=== PATIENT | female | born 1960 | race Caucasian/White ===

== ENCOUNTER 2020-01-27 07:29 | Outpatient (CLI) | payer BC, SELFPAY ==
--- NOTE | ~2020-01-27 | MM_ITS ---
EXAMINATION: MM screening [facility] BI w nadiya HISTORY: Screening mammogram TECHNIQUE: Craniocaudal and mediolateral oblique 3-D tomosynthesis images were obtained and synthetic 2-D images were generated. CAD analysis was submitted and interpreted. COMPARISON: 08/02/2018, 10/09/2008, 09/03/2008 BREAST PARENCHYMAL COMPOSITION: There are scattered areas of fibroglandular density. FINDINGS: There is a stable low density mass in the posterior third of the lower left breast. There i s no evidence of suspicious mass, calcification, or architectural distortion to suggest malignancy in either breast. There has been no suspicious interval change. IMPRESSION: 1. No mammographic evidence of malignancy. 2. Recommend routine screening mammography in one year. BI-RADS Category 2: Benign finding(s). Reviewed, dictated and finalized at location A.
== END 2020-01-27 07:30 | disposition home or self-care (01) ==
LOC: ANHIMG 07:34
PROVIDERS: PCP Nurse Practitioner; Visit Provider Nurse Practitioner
DX: Z12.31 Encounter for screening mammogram for malignant neoplasm of breast (principal)
CPT/HCPCS: 77063; 77067

== ENCOUNTER 2021-01-27 08:56 | Outpatient (CLI) | payer BC, SELFPAY ==
--- NOTE | ~2021-01-27 | MM_ITS ---
EXAMINATION: MM screening [facility] BI w nadiya HISTORY: Screening mammogram TECHNIQUE: Craniocaudal and mediolateral oblique 3-D tomosynthesis images were obtained and synthetic 2-D images were generated. CAD analysis was submitted and interpreted. COMPARISON: 01/27/2020, 08/02/2018, 10/09/2008 BREAST PARENCHYMAL COMPOSITION: There are scattered areas of fibroglandular density. FINDINGS: RIGHT BREAST: There is a possible mass in the middle third of the slightly lower, slightly outer al[address] st 7.5 cm from the nipple. LEFT BREAST: There is no evidence of suspicious mass, calcification, or architectural distortion to s uggest malignancy. There has been no significant interval change. IMPRESSION: 1. Possible right breast mass. 2. Additional mammographic views and possible breast ultrasound are recommended. BI-RADS Category 0: Incomplete: Needs additional imaging evaluation. Reviewed, dictated and finalized at location A. IMPRESSION: 1. Possible right breast mass. 2. Additional mammographic views and possible breast ultrasound are recommended . BI-RADS Category 0: Incomplete: Needs additional imaging evaluation.
== END 2021-01-27 08:57 | disposition home or self-care (01) ==
LOC: ANHIMG 09:00
PROVIDERS: PCP Nurse Practitioner; Visit Provider Nurse Practitioner
DX: Z12.31 Encounter for screening mammogram for malignant neoplasm of breast (principal); R92.8 Other abnormal and inconclusive findings on diagnostic imaging of breast
CPT/HCPCS: 77063; 77067

== ENCOUNTER 2021-02-23 13:48 | Outpatient (CLI) | payer BC, SELFPAY ==
--- NOTE | ~2021-02-23 | MMUS_ITS ---
EXAMINATION: MM diagnostic [place] RT w nadiya, US breast RT complete HISTORY: Follow-up right breast asymmetry TECHNIQUE: Additional 3-D tomosynthesis images of the right breast were performed and synthetic 2-D i mages were generated. CAD analysis was submitted and interpreted. High resolution complete right alcon st ultrasound was performed. COMPARISON: 01/27/2021 BREAST PARENCHYMAL COMPOSITION: Breast composed of scattered areas of fibroglandular density FINDINGS: MAMMOGRAPHIC FINDINGS: There is a 5 mm circumscribed radiolucent central aspect of the right breast on CC view. This is not identified on the lateral or MLO views. ULTRASOUND: Complete right breast ultrasound: At 12:00, 2 cm from the nipple, there is a 6 mm simple cyst likely corresponding to the mammographic finding. No suspicious masses to suggest malignancy. IMPRESSION: 1. No evidence for malignancy in the right breast. 2. Routine yearly screening mammogram and regular clinical breast examination are recommended. BI-RADS Category 2: Benign finding(s). Reviewed, dictated and finalized at location A. IMPRESSION: 1. No evidence for malignancy in the right breast. 2. Routine yearly screening mammogram and regular clinical breast examination a re recommended. BI-RADS Category 2: Benign finding(s).
== END 2021-02-23 13:49 | disposition home or self-care (01) ==
LOC: ANHIMG 13:50
PROVIDERS: PCP Internal Medicine; Visit Provider Nurse Practitioner
DX: R92.8 Other abnormal and inconclusive findings on diagnostic imaging of breast (principal)
CPT/HCPCS: 76641; 77061; 77065; G0279

== ENCOUNTER → 2023-02-03 08:10 | Outpatient (CLI) | payer OTHER, SELFPAY ==
--- NOTE | ~2023-02-03 | XR_ITS ---
Clinical Indication: Cough PA and lateral views of the chest: Comparison: None Findings: The lungs are clear, without evidence of focal consolidation or pleural effusion. Cardiome diastinal silhouette is within normal limits. Bones and soft tissues are unremarkable. Impression: Normal chest. Reviewed, dictated and finalized at location . Impression: Normal chest.
== END ==
PROVIDERS: PCP Nurse Practitioner; Visit Provider Nurse Practitioner
DX: R05.9 Cough, unspecified (principal)
CPT/HCPCS: 71046

== ENCOUNTER 2023-12-22 07:02 | Emergency (ER) | payer OTHER, SELFPAY ==
--- NOTE | ~2023-12-22 | XR_ITS ---
Clinical Indication: Left anterior rib pain PA and lateral views of the chest: Comparison: 02/03/2023 Findings: The lungs are clear, without evidence of focal consolidation or pleural effusion. Possible COPD. Cardiomediastinal silhouette is within normal limits. Bones and soft tissues are unremarkable. Impression: Clear lungs. Possible COPD. No fracture evident on this exam. Reviewed, dictated and finalized at location . Impression: Clear lungs. Possible COPD. No fracture evident on this exam.
[2023-12-22 07:11] VITALS: BP 130/66; PULSE 85; RESP 18; TEMP 36.8; O2SAT 97
--- NOTE | 2023-12-22 07:25 | ED.GENADULT ---
HPI - General Adult General Chief complaint: Unspecified Stated complaint: rib pain Time Seen by Provider: 12/22/23 07:08 History of Present Illness HPI narrative: This is a 62-year-old female presenting with anterior rib pain. patient had a chiropractic manipulation 1 week ago because she was having neck spasms. During that time she was laying on her stomach her chiropractor pushed on her back pop in her back but then also causing her some anterior rib pain. Since then she has taking intermittent Motrin. However the pain is still there with movement and palpation. Patient saw her primary care physician who prescribed her NSAIDs and muscle relaxers however the patient has not taken a muscle relaxer she had. Patient denies fevers chills productive cough chest pain abdominal pain or back pain neurologic deficits. Related Data Allergies Allergy/AdvReac Type Severity Reaction Status Date / Time metronidazole Allergy Unknown Hives Verified 12/22/23 07:25 [facility] Past Medical History Medical History Clostridial gastroenteritis Social History Social History Smoking packs per day: 0.5 Smoking cigarettes per day: 10.0 Smoking status: Current every day smoker Tobacco type: cigarettes Alcohol intake: current Drinks per week: 4 Alcohol use details: social Substance use: never Substance use type: does not use Exam Narrative: APPEARANCE: No apparent distress. Head: atraumatic. EYES: EOMI, NOSE: Atraumatic NECK: Trachea midline RESPIRATORY: No increased rate of breathing CTAB CARDIOVASCULAR: RRR, ABDOMINAL: Non-distended MUSCULOSKELETAl: Tenderness to palpation over the parasternal area on ribs 6 and 7 bilaterally. No overlying skin changes. AP or lateral loading of the ribcage. NEURO: Alert. Moving 4/4 extremities SKIN:: Warm, dry. Normal color PSYCHIATRIC: Normal affect Course Vital Signs Vital signs: Vital Signs Temperature 98.2 F 12/22/23 07:11 Pulse Rate 85 12/22/23 07:11 Respiratory Rate 18 12/22/23 07:11 Blood Pressure 130/66 12/22/23 07:11 Pulse Oximetry 97 12/22/23 07:11 Oxygen Delivery Room Air 12/22/23 07:11 Temperature 98.2 F 12/22/23 07:11 Pulse Rate 85 12/22/23 07:11 Respiratory Rate 18 12/22/23 07:11 Blood Pressure 130/66 12/22/23 07:11 Pulse Oximetry 97 12/22/23 07:11 Oxygen Delivery Room Air 12/22/23 07:11 Medical Decision Making MDM Narrative Medical decision making narrative: -Course: 62-year-old female presenting with bilateral anterior rib cage after chiropractic manipulation. Physical exam is shows point tenderness the parasternal area at rib 6 7 bilaterally. Vital signs/ stable lungs are clear. Chest x-ray negative obvious rib fractures or pneumothorax. Patient's pain was treated she is given incentive spirometer. Discharged w/ primary care follow-up and return precautions. 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[employer], denies drugs or alcohol -Interventions: Toradol, Tylenol lidocaine patch methocarbamol -Shared decision making / Disposition: discharge -RX Motrin Tylenol lidocaine Robaxin Vital Signs Vital Signs: Vital Signs Temperature 98.2 F 12/22/23 07:11 Pulse Rate 85 12/22/23 07:11 Respiratory Rate 18 12/22/23 07:11 Blood Pressure 130/66 12/22/23 07:11 Pulse Oximetry 97 12/22/23 07:11 Oxygen Delivery Room Air 12/22/23 07:11 Temperature 98.2 F 12/22/23 07:11 Pulse Rate 85 12/22/23 07:11 Respiratory Rate 18 12/22/23 07:11 Blood Pressure 130/66 12/22/23 07:11 Pulse Oximetry 97 12/22/23 07:11 Oxygen Delivery Room Air 12/22/23 07:11 Discharge Plan Discharge Clinical Impression: Rib pain Patient Disposition: Home, Se
[2023-12-22] MEDS: LIDOCAINE 5% PATCH 1 PATCH TRANSDERM (07:32)
[2023-12-22] MEDS: methocarbamoL 750 MG TABLET 1500 MG PO (07:32)
[2023-12-22] MEDS: ACETAMINOPHEN 500 MG TABLET 1000 MG PO (07:33)
[2023-12-22] MEDS: KETOROLAC 30 MG/ML VIAL (*BKC) IM (07:35)
[2023-12-22 08:25] VITALS: BP 128/73; PULSE 66; RESP 17; O2SAT 100
[2023-12-22 08:26] VITALS: BP 128/73; PULSE 66; RESP 15; O2SAT 100
== END 2023-12-22 08:28 | disposition home or self-care (01) ==
PROVIDERS: Emergency Provider Emergency Medicine; PCP Nurse Practitioner
DX: R07.81 Pleurodynia (principal); F17.210 Nicotine dependence, cigarettes, uncomplicated; Z79.51 Long term (current) use of inhaled steroids
CPT/HCPCS: 71046; 96372; 99283; A9270; J1885

== ENCOUNTER 2024-10-02 12:11 | Emergency (ER) | payer OTHER, SELFPAY ==
--- NOTE | ~2024-10-02 | XR_ITS ---
3 VIEWS LUMBAR SPINE Ordering provider: Cristin Donohue NP History: . low back pain for 1 wk after coughing hx herniated disc . Comparison: None. FINDINGS: VERTEBRAL BODIES:Compression fracture involving the superior endplate of L1 is noted which may be acu te or chronic. MRI evaluation advised. No visible fracture or subluxation. Mild levoscoliosis. DISK SPACES: Narrowing of the disc L4-L5 and L5-S1. Facet joint disease at the level of L4-L5 and L5- S1. SOFT TISSUES: Normal. IMPRESSION: Compression fracture of L1 which may be acute or chronic. MRI evaluation is advised. Multilevel degenerative disc disease. Reviewed, dictated and finalized at location A. IMPRESSION: Compression fracture of L1 which may be acute or chronic. MRI evaluation is adv ised. Multilevel degenerative disc disease.
[2024-10-02 12:23] VITALS: BP 124/64; PULSE 70; RESP 18; TEMP 36.1; O2SAT 99
--- NOTE | 2024-10-02 12:31 | ED_ITS ---
HPI - Back Pain/Injury General Chief Complaint: Back Pain/Injury Stated Complaint: back injury Time Seen by Provider: 10/02/24 12:32 Source: patient Mode of arrival: ambulatory Limitations: no limitations History of Present Illness HPI Narrative: 63-year-old female presents with complaint low back pain for 1 week. Patient states she was coughing and was trying to hold in a when she was in a crowd people and had excruciating pain to back since then. Patient reports history bulging disc. Patient requesting x-ray to rule out back injury. Ambulatory with steady gait. No radiation of pain. No loss of bowel or bladder. No weakness or numbness to lower extremities. All systems reviewed and negative except as noted above. Related Data Allergies Allergy/AdvReac Type Severity Reaction Status Date / Time metronidazole Allergy Unknown Hives Verified 10/02/24 12:26 Review of Systems Review of Systems: CONSTITUTIONAL: Denies fever, chills, or sweats. EYES: Denies visual changes, redness, or discharge. ENT: Denies rhinorrhea, congestion, sore throat, or otalgia. CARDIOVASCULAR: Denies chest pain, palpitations, or edema. RESPIRATORY: Denies cough or dyspnea. GASTROINTESTINAL: Denies abdominal pain, nausea, vomiting, or diarrhea. GENITOURINARY: Denies dysuria or hematuria. SKIN: Denies rash or itching. MUSCULOSKELETAL: Reports low back pain. Denies joint pain, or myalgia. NEUROLOGIC: Denies headache, numbness, or weakness. PSYCHIATRIC: Denies anxiety or depression. All other systems reviewed are negative, except as documented in HPI. PMFSH Past Medical History Medical History Clostridial gastroenteritis Social History Social History Smoking packs per day: 0.5 Smoking cigarettes per day: 10.0 Smoking status: Former smoker Tobacco type: cigarettes Alcohol intake: current Drinks per week: 4 Alcohol use details: social Substance use: never Substance use type: does not use Comments At time of signature, agree with nursing past medical, surgical, social and family history. There is no relevant family history pertinent to the presenting complaint. Exam Narrative: GENERAL: This is a well-nourished, well-developed patient, in no apparent distress. HEAD: normocephalic, atraumatic. EYES: PERRL. Sclera clear/white. Vision is grossly intact. EARS: External ears normal NOSE: External nose normal NECK: Neck supple, non-tender without lymphadenopathy, masses or thyromegaly. CARDIOVASCULAR: Regular rate and rhythm without murmurs, gallops, or rubs. RESPIRATORY: Clear to auscultation. Breath sounds equal bilaterally. No wheezes, rales, or rhonchi. SKIN: warm, Dry, intact with no suspicious lesions or rash, good texture and turgor. NEURO: awake, alert, and oriented to person, place and time. There were no obvious focal neurologic abnormalities. EXTREMITIES: No joint tenderness, effusion, or edema noted. BACK: tenderness to L1-L3. No deformity or step-offs. No swelling noted. Course Course Level of Care: Express Care Visit Vital Signs Vital signs: Vital Signs Temperature 36.1 C L 10/02/24 12:23 Pulse Rate 70 10/02/24 12:23 Respiratory Rate 18 10/02/24 12:23 Blood Pressure 124/64 10/02/24 12:23 Pulse Oximetry 99 10/02/24 12:23 Oxygen Delivery Room Air 10/02/24 12:23 Temperature 36.1 C L 10/02/24 12:23 Pulse Rate 70 10/02/24 12:23 Respiratory Rate 18 10/02/24 12:23 Blood Pressure 124/64 10/02/24 12:23 Pulse Oximetry 99 10/02/24 12:23 Oxygen Delivery Room Air 10/02/24 12:23 Reviewed MDM - Back Pain/Injury MDM Narrative Medical decision making narrative: discussed x-ray results with patient. Possible L1 compression fracture noted. Patient referred to neurosurgery for further evaluation. Patient is well- appearing, nontoxic. Mild pain distress. Ambulatory with steady gait. No neuro deficits at time of discharge. Please be advised this is a medical document. It is intended for [id number] communication. It is written in medical language and may contain unfamiliar abbreviations or verbiage. Medical documents are intended to carry relevant information, facts as evident, and the clinical opinion of the practitioner at the time of the encounter. This report may have been done utilizing a voice recognition system. Attempts have been made to correct errors. However, there may be uncorrected grammatical, spelling, and recognition errors present. The file time of this note does not necessarily represent the time of service. Imaging Data My impression: Agree with radiologist Radiologist's impression: 3 VIEWS LUMBAR SPINE Ordering provider: Cristin Donohue NP History: . low back pain for 1 wk after coughing hx herniated disc . Comparison: None. FINDINGS: VERTEBRAL BODIES:Compression fracture involving the superior endplate of L1 is noted which may be acute or chronic. MRI evaluation advised. No visible fracture or subluxation. Mild levoscoliosis. DISK SPACES: Narrowing of the disc L4-L5 and L5-S1. Facet joint disease at the level of L4-L5 and L5-S1. SOFT TISSUES: Normal. IMPRESSION: Compression fracture of L1 which may be acute or chronic. MRI evaluation is advised. Multilevel degenerative disc disease. Discharge Plan Discharge Clinical Impression: Closed compression fracture of L1 vertebra Patient Disposition: Home, Self-Care Condition: Stable Instructions: Vertebral Compression Fracture (ED) Additional Instructions: the x-ray of your lumbar spine shows a possible compression fracture. Take medications as prescribed. Tramadol and methocarbamol may make you drowsy. Do not drive while taking these medications. May continue to apply ice to treat pain. Call today and schedule follow-up appointment with Dr. Austin with Neurosurgery. Patient Language: Pakistani Prescriptions: New methocarbamol 750 mg tablet 750 mg PO Q8H PRN (Reason: muscle pain/spasm) Qty: 30 0RF tramadol 50 mg tablet 50 mg PO Q6H PRN (Reason: pain) Qty: 20 0RF No Action methocarbamol 750 mg tablet 750 mg PO TID PRN (Reason: muscle spasm) Qty: 30 0RF ibuprofen 800 mg tablet 800 mg PO TID PRN (Reason: pain) 7 Days Qty: 21 0RF Follow-up/Referrals: Philomena Austin MD [Physician] - (follow up for further evaluation of back pain) UNKNOWN,DOCTOR [Primary Care Provider] - Time of Disposition: 13:11
--- OUTSIDE RECORDS SUMMARY | 2024-10-02 13:41 | XMS_ITS | Clinical Summary ---
Author Organization [facility] Address [address] [place] [address] Care Team Providers Care Cook Helper Dessert Name Role Phone Unavailable Primary Care Provider Unavailabl e Social History Tobacco Use Types Packs/Day Years Used Date Smoking Tobacco: Never Assessed Comments Unknown Sex and Gender Information Value Date Recorded Sex Assigned at Not on file Legal Sex Female 5:13 PM CDT Gender Identity Not on file Sexual Orientation Not on file Plan of Treatment Health Maintenance Due Date Last Done Comments Cervical Cancer Screening Pa p Smear (Age 30 to 64) Every 3 Years 1960 Colorectal Cancer Screening Colonoscopy (10 Years) 1960 Annual Physical 12/28/1963 Hepatitis C 1978 DTaP, Tdap and Td Vaccines ( 1 - Tdap) 12/28/1979 Cervical Cancer Screening Pa p with HPV Testing (Age 30 to 64) Every 5 Years 1990 Cervical Cancer Screening with HPV 1990 Mammogram Screening 2000 Zoster Vaccines (1 of 2) 2010 COVID-19 Vaccine (2023-2 5 season) 2024 Influenza Adult (#1) 2024 RSV Immunization or 60+ Years (1 - 1-dose 75+ series) 12/28/2035 Meningococcal B Vaccine Aged Out No l onger eligible based on patient's age to complete this topic Meningococcal Vaccine Aged Out No leeanne avinash eligible based on patient's age to complete this topic Pneumococcal Vaccine: Pediat rics (0 to 5 Years) and At-Risk Patients (6 to 64 Years) Aged Out No longer eligible b ased on patient's age to complete this topic RSV Immunizations Under 20 Months Aged Out No longer eligible based on patient's age to complete this topic
== END 2024-10-02 13:15 | disposition home or self-care (01) ==
PROVIDERS: Emergency Provider Nurse Practitioner Family
DX: S32.019A Unspecified fracture of first lumbar vertebra, initial encounter for closed fracture (principal); X58.XXXA Exposure to other specified factors, initial encounter; Z87.891 Personal history of nicotine dependence
CPT/HCPCS: 72100; 99213; G0463

== ENCOUNTER 2024-10-22 09:22 | Outpatient (CLI) | payer OTHER, SELFPAY ==
--- NOTE | ~2024-10-22 | XR_ITS ---
Lumbosacral Spine: AP and lateral views Clinical History: Pain COMPARISON: 10/02/2024 Findings: The normal lordotic curve is maintained. Moderate compression fracture of L1 is unchanged. Stable degenerative disc changes, worst at L4-L5 and L5-S1. Stable facet arthropathy, worst from L3 t hrough S1. The sacroiliac joints are normally outlined. Impression: Stable L1 compression fracture. Stable moderate to advanced degenerative spondylitic changes. Reviewed, dictated and finalized at location . Impression: Stable L1 compression fracture. Stable moderate to advanced degenerative spondylitic changes.
--- OUTSIDE RECORDS SUMMARY | 2024-10-22 10:12 | XMS_ITS | Continuity of Care Document ---
Author Organization [facility] Address [address] [place] [address] [address] [place] [address] Phone Care Team Providers Care Tape Machine Tailer Name Role Phone Kaur Fournier Unavailable Unavailable Procedures Procedure Date Office/outpatient Visit, [facility] Advance Directives Directive Yes / No Effective Date File Name No Information Encounters Encounter Description Practice Location Reason(s) For Visit Diagnoses Date Provider Providers Copied on Encounter Office/outpat ient Visit, [facility], [address] [place] [address] [address], [place], [place], [id number], [place] tel:[phone] [facility] No Information [address] , [address], [place], [address], [place]. tel:[phone] Family History Family Member Type Diagnosis Age At Onset No Information Payers Payer name Insurance type Covered green party ID Authoriza tion(s) No Information Social History Type Description Quantity Date Captured Comments Sex Female Smoking Status No Information Chief Complaint And Reason For Visit No Information Reason For Referral Reason For Referral No Information History Of Present Illness Encounter Date Complaint History Of Prese nt Illness No Information Functional Status Date Functional Assessmen t No Information Instructions Date Instruction Additional Infor mation No Information Assessments Type Assessment Date No Information Patient Care Teams Name Effective Dates (start - stop) Status Members No Information
--- OUTSIDE RECORDS SUMMARY | 2024-10-22 10:12 | XMS_ITS | Clinical Summary ---
Author Organization [facility] Address [address] [place] [address] Care Team Providers Care Tariff Clerk Name Role Phone Unavailable Primary Care Provider [...] 2010 COVID-19 Vaccine (2023-2 5 season) 2024 RSV Immunization or 60+ Years (1 [...]
== END 2024-10-22 09:23 | disposition home or self-care (01) ==
PROVIDERS: PCP Nurse Practitioner; Visit Provider Nurse Practitioner Adult Health
DX: S32.010A Wedge compression fracture of first lumbar vertebra, initial encounter for closed fracture (principal); X58.XXXA Exposure to other specified factors, initial encounter; M47.816 Spondylosis without myelopathy or radiculopathy, lumbar region; M47.817 Spondylosis without myelopathy or radiculopathy, lumbosacral region
CPT/HCPCS: 72100

== ENCOUNTER 2024-10-31 12:49 | Outpatient (CLI) | payer OTHER, SELFPAY ==
--- NOTE | ~2024-10-31 | DEXA_ITS ---
Bone Density Report Name: CHERELLE OCHOA Age: 63 Sex: Female Ethnicity: White Date of : 1960 Indication: postmenopausal; screening for osteoporosis; height loss; prior fracture; Referring Provider: ERICA ALMANZA Study: Bone densitometry was performed. Exam Date: October 31, 2024 Accession number: [id number] Bone Density: Region BMD T-score Z-score Classification AP Spine(L1-L4) 0.853 -1.8 -0.1 Osteopenia Femoral Neck (Left) 0.668 -1.6 -0.2 Osteopenia Total Hip (Left) 0.809 -1.1 0.1 Osteopenia Femoral Neck (Right) 0.621 -2.1 -0.6 Osteopenia Total Hip (Right) 0.765 -1.5 -0.3 Osteopenia Total Hip Mean 0.787 -1.3 -0.1 Osteopenia World Health Organization criteria for BMD impression classify patients as: Normal (T-score at or above -1.0), Osteopenia (T-score between -1.0 and -2.5), or Osteoporosis (T-score at or below -2.5). 10-year Fracture Risk: FRAX not reported because: Prior hip or vertebral fracture Clinical Information Provided by Patient: Have had a previous hip or vertebral fracture Has had a low trauma fracture Has used the following medications: Vitamin D, Calcium Patient maximum height was 63 Menopause Age: 43 No regular weight bearing exercise Drinks caffeinated beverages Onset of menses at age 13 Number of children 2 Impression: The patient has low bone mass, based on the Right Femoral Neck T-score. The patient has risk factors, including: previous fracture. Discussion: INCREASED RISK OF FRACTURE DUE TO HISTORY OF FRACTURE. The patient's previous fracture puts the patient at high risk of a future fracture. In untreated patients, the risk of osteoporotic fracture increases approximately two-fold for each 1.0 SD decrease in T-score. Low bone density is not the only risk factor for fracture; also consider factors such as patient's age, frailty or poor health, risk of falling, risk of injury, previous osteoporotic fracture, family history of osteoporosis, cigarette smoking, low body weight, etc. Not everyone with a low trauma fracture has osteoporosis; osteomalacia and other metabolic bone disorders should also be considered. Patients who have osteoporosis should be evaluated for specific diseases and conditions (secondary causes) that may cause or contribute to bone loss and fracture risk. National Osteoporosis Foundation (NOF) recommends pharmacologic intervention for patients with a prior hip or vertebral fracture regardless of BMD T-score. The patient should follow a healthful lifestyle (good nutrition with adequate calcium and vitamin D, and appropriate weight-bearing exercise). Follow-Up: Consider a repeat BMD and Vertebral Fracture Assessment (VFA) exam in 2 years or sooner if medically necessary, to reassess this patient's status. Reported by: ROSARIO on 10/31/2024 1:27:00 PM. Reviewed, dictated and finalized at location AEstrellita PHAM
--- OUTSIDE RECORDS SUMMARY | 2024-10-31 13:06 | XMS_ITS | Clinical Summary ---
Author Organization [facility] Address [address] [place] [address] Care Team Providers Care Creping Machine Operator Helper Name Role Phone Unavailable Primary Care Provider [...] Screening with HPV 1990 Mammogram Screening 2000 Pneumococcal Vaccine: 50+ Ye ars (1 of 1 - PCV) 2010 Zoster Vaccines (1 of 2) 2010 COVID-19 [...]
--- OUTSIDE RECORDS SUMMARY | 2024-10-31 13:06 | XMS_ITS | Continuity of Care Document ---
Author Organization [facility] Address [address] [place] [address] [address] [place] [address] Phone Care Team Providers Care Ship Mate Name Role Phone Kaur Fournier Unavailable Unavailable Procedures Procedure Date Office/outpatient Visit, [facility] Advance Directives Directive Yes / No Effective Date File Name No Information Encounters Encounter Description Practice Location Reason(s) For Visit Diagnoses Date Provider Providers Copied on Encounter Office/outpat ient Visit, [facility], [address] [place] [address] [address], [place], [place], [id number], [place] tel:[phone] [facility] No Information [phone]. [address] , [address], [place], [address], [place]. tel:[phone] Family History Family Member Type Diagnosis Age At Onset No Information Payers Payer name Insurance type Covered libertarian ID Authoriza tion(s) No Information Social History [...]
== END 2024-10-31 12:50 | disposition home or self-care (01) ==
PROVIDERS: PCP Nurse Practitioner; Visit Provider Nurse Practitioner
DX: S32.010A Wedge compression fracture of first lumbar vertebra, initial encounter for closed fracture (principal); Z78.0 Asymptomatic menopausal state; X58.XXXA Exposure to other specified factors, initial encounter; M85.88 Other specified disorders of bone density and structure, other site; M85.852 Other specified disorders of bone density and structure, left thigh; M85.851 Other specified disorders of bone density and structure, right thigh
CPT/HCPCS: 77080

== ENCOUNTER 2024-11-26 08:31 | Outpatient (CLI) | payer OTHER, SELFPAY ==
--- NOTE | ~2024-11-26 | XR_ITS ---
3 VIEWS LUMBAR SPINE Ordering provider: Masha Ramírez APRN History: . S32.010A - Wedge compression fracture of first lumbar anthony... . Comparison: October 22, 2024 FINDINGS: VERTEBRAL BODIES:Compression fracture of L1 unchanged from previous examination. Otherwise, No visibl e fracture or subluxation. Degenerative changes of the spine. Mild dextroscoliosis. DISK SPACES: Narrowing of the disc L4-L5 and L5-S1. Facet joint disease at the level of L3-L4, L4-L5 and L5-S1. SOFT TISSUES: Normal. Possibility of left kidney stone cannot be excluded. IMPRESSION: Compression fracture of L1 unchanged from previous examination. Degenerative disc disease at the level of L4-L5 and L5-S1. Possibility of left kidney stone cannot be excluded. Reviewed, dictated and finalized at location A.
--- OUTSIDE RECORDS SUMMARY | 2024-11-26 08:38 | XMS_ITS | Clinical Summary ---
Author Organization [facility] Address [address] [place] [address] Care Team Providers Care Tax Processor Name Role Phone Unavailable Primary Care Provider [...]
--- OUTSIDE RECORDS SUMMARY | 2024-11-26 08:38 | XMS_ITS | Continuity of Care Document ---
Author Organization [facility] Address [address] [place] [address] [address] [place] [address] Phone Care Team Providers Care Sheriff Sergeant Name Role Phone Kaur Fournier Unavailable Unavailable Procedures Procedure Date Office/outpatient Visit, [facility] Advance Directives Directive Yes / No Effective Date File Name No Information Encounters Encounter Description Practice Location Reason(s) For Visit Diagnoses Date Provider Providers Copied on Encounter Office/outpat ient Visit, [facility], [address] [place] [address] [address], [place], [place], [id number], [place] tel:[phone] [facility] No Information [address] Irlanda Dietrich. [address] , [address], [place], [address], [place]. tel:[phone] Family History Family Member Type Diagnosis Age At Onset No Information Payers Payer name Insurance type Covered democrat ID Authoriza tion(s) No Information Social History [...]
== END 2024-11-26 08:32 | disposition home or self-care (01) ==
PROVIDERS: PCP Nurse Practitioner; Visit Provider Nurse Practitioner Adult Health
DX: S32.010A Wedge compression fracture of first lumbar vertebra, initial encounter for closed fracture (principal); X58.XXXA Exposure to other specified factors, initial encounter; M51.369 Other intervertebral disc degeneration, lumbar region without mention of lumbar back pain or lower extremity pain; M51.379 Other intervertebral disc degeneration, lumbosacral region without mention of lumbar back pain or lower extremity pain
CPT/HCPCS: 72100